=== PATIENT | female | born 1965 | race Caucasian/White ===

== ENCOUNTER 2017-08-25 05:24 | Day surgery (SDC) | payer MEDICARE, OTHER ==
[2017-08-22 15:49] VITALS: BP 108/73
[~2017-08-25] VITALS: Ht 161.3 cm; Wt 53.2 kg
[~2017-08-25 05:24] MED LIST: ATEN25TA PO; CLON0.5T20 PO; CYCL5TAB PO; FLUT9.9S NAS; LORA-439 PO; LORA0.5T PO; MEDR10TA PO; MIRT7.5T8 PO; NAPR220C2 PO; OXCA300T3 PO; POTA10TA17 PO; PROM25SU35 PR; ROSU20TA PO; SERT25TA3 PO; SUMA100T3 PO; SUMA5SPR2 NAS
[2017-08-25] MEDS ORDERED: LACTATED RINGERS 1,000 ML IV SCH (06:12)
[2017-08-25 06:13] LABS: HCG UR LOT HCG7030192
[2017-08-25] MEDS ORDERED: ROSU40TA PO (06:17)
[2017-08-25] MEDS ORDERED: OMEGA 3 PO (06:19)
[2017-08-25] MEDS ORDERED: OMEG1CAP2 PO (06:19)
[2017-08-25 06:21] VITALS: BP 108/73
[2017-08-25 06:25] LABS: HCG UR OBC PASS
[2017-08-25 06:45] LABS: HEMATOCRIT 29.4 % (34.6-47.8); HEMOGLOBIN 9.9 g/dL (11.7-16.4); WHITE BLOOD COUNT 6.9 x10^3/uL (3.4-10)
[2017-08-25] MEDS ORDERED: FLUORESCEIN SODIUM 500 MG/5 ML ONE (06:49)
[2017-08-25] MEDS ORDERED: LIDOCAINE/PF 1%, 30ML ONE (06:49)
[2017-08-25] MEDS ORDERED: EPINEPHRINE 1 MG/ML, 1ML ONE ×2 (06:50→07:11)
[2017-08-25 06:54] LABS: ASPARTATE AMINO TRANSFERASE 9 U/L (15-37); BLOOD UREA NITROGEN 20 mg/dL (7-18)
[2017-08-25] MEDS ORDERED: FENTANYL PF 100 MCG/2ML ONE ×3 (06:59→09:00)
[2017-08-25] MEDS ORDERED: MIDAZOLAM 1 MG/ML, 2ML ONE (06:59)
[2017-08-25] MEDS ORDERED: KETOROLAC 60 MG/2 ML ONE (07:10)
[2017-08-25] MEDS ORDERED: TRANEXAMIC ACID 100 MG/ML, 10ML ONE ×4 (07:10→07:11)
[2017-08-25] MEDS ORDERED: SODIUM CHLORIDE 0.9% 0 ML ONE (07:11)
[2017-08-25] MEDS ORDERED: SILVER NITRATE STICK TP ONE (07:24)
[2017-08-25] MEDS ORDERED: HYDROmorphone 1 MG/ML, 1ML IV PRN (08:30)
[2017-08-25] MEDS ORDERED: METOPROLOL 1 MG/ML, 5ML IV PRN (08:30)
[2017-08-25] MEDS ORDERED: MIDAZOLAM 1 MG/ML, 2ML IV PRN (08:30)
[2017-08-25] MEDS ORDERED: ONDANSETRON 2MG/ML, 2ML IVPush PRN (08:30)
[2017-08-25] MEDS ORDERED: EPHEDRINE 50 MG/ML, 1ML IVPush PRN (08:30)
[2017-08-25] MEDS ORDERED: hydrALAzine 20 MG/ML, 1ML IV PRN (08:30)
[2017-08-25] MEDS ORDERED: PROMETHAZINE 25 MG/ML, 1ML IV PRN (08:30)
[2017-08-25] MEDS ORDERED: ALBUTEROL SULFATE 2.5 MG/3 ML NPPB PRN (08:30)
[2017-08-25] MEDS ORDERED: LABETALOL 5MG/ML, 20ML IV PRN (08:30)
[2017-08-25] MEDS ORDERED: FENTANYL PF 100 MCG/2ML IV PRN (08:30)
[2017-08-25] MEDS ORDERED: ACETAMINOPHEN 325 MG TABLET PO PRN (08:30)
[2017-08-25] MEDS ORDERED: SUCCINYLCHOLINE 20 MG/ML, 10ML ONE (08:36)
[2017-08-25] MEDS ORDERED: GLYCOPYRROLATE 0.2MG/1ML, 5ML ONE (08:36)
[2017-08-25] MEDS ORDERED: ROCURONIUM 10 MG/ML,10ML ONE (08:36)
[2017-08-25] MEDS ORDERED: CEFAZOLIN 1,000 MG ONE (08:36)
[2017-08-25] MEDS ORDERED: PROPOFOL 10 MG/ML, 20ML ONE (08:36)
[2017-08-25] MEDS ORDERED: DEXAMETHASONE 4 MG/ML, 1ML ONE (08:36)
[2017-08-25] MEDS ORDERED: NEOSTIGMINE 1 MG/ML, 10ML ONE (08:36)
[2017-08-25] MEDS ORDERED: ONDANSETRON 2MG/ML, 2ML ONE (08:36)
[2017-08-25] MEDS ORDERED: ACETAMINOPHEN 650 MG/20.3 ML UDC ONE (08:59)
== END 2017-08-25 16:30 ==
LOC: OUT 05:24
PROVIDERS: ATTEND Obstetrics & Gynecology Gynecology
DX: N92.0 Excessive and frequent menstruation with regular cycle (principal); D64.9 Anemia, unspecified; F31.9 Bipolar disorder, unspecified; Z88.0 Allergy status to penicillin; Z88.8 Allergy status to other drugs, medicaments and biological substances; Z88.1 Allergy status to other antibiotic agents; Z91.040 Latex allergy status
CPT/HCPCS: 36415; 52000; 58262; 80053; 81001; 81025; 85014; 85025; 88307; J0171; J0330; J0690; J1100; J1885; J2250; J2405; J2704; J2710; J3010; J3490; J7120

== ENCOUNTER → 2020-05-12 | Outpatient (CLI) | payer MEDICARE, OTHER ==
[~2020-05-12] MED LIST changes: +B CO1TAB14 PO; +ERGO500017 PO; +HYDR5TAB13 PO; +LEVO75TA PO; +LIOT5TAB11 PO; +MAGN400T9 PO; +MAGN500T PO; +METO25TA35 PO; +OMEG1CAP2 PO; +OMEGA 3 PO; +PROM25TA10 PO; -ROSU20TA PO; +ROSU20TA2 PO; +ROSU40TA PO; +TYLENOL ARTHRITIS PO; +UBID100C41 PO; +VITA1TAB19 PO
== END | disposition home or self-care (01) ==
LOC: STAR 14:06
PROVIDERS: ATTEND Urology
DX: Z01.818 Encounter for other preprocedural examination (principal); Z11.59 Encounter for screening for other viral diseases; N20.0 Calculus of kidney
CPT/HCPCS: 36415; 87635; 93005

== ENCOUNTER 2020-05-17 12:15 | Day surgery (SDC) | payer MEDICARE, OTHER ==
[~2020-05-17] VITALS: Ht 160 cm; Wt 71.3 kg
[2020-05-17] MEDS ORDERED: LACTATED RINGERS 1,000 ML IV SCH (13:02)
[2020-05-17 13:03] VITALS: BP 131/75
[2020-05-17] MEDS ORDERED: LORA10TA75 PO (13:28)
[2020-05-17] MEDS ORDERED: CHLORHEXIDINE 15 ML UDC MM ONE (13:30)
[2020-05-17] MEDS ORDERED: HYDROCORTISONE 100 MG INJ. ONE (14:02)
[2020-05-17] MEDS ORDERED: MIDAZOLAM 1 MG/ML, 2ML ONE (14:03)
[2020-05-17] MEDS ORDERED: FENTANYL PF 250 MCG/5ML ONE (14:04)
[2020-05-17] MEDS ORDERED: SUCCINYLCHOLINE 20 MG/ML, 10ML ONE (14:05)
[2020-05-17] MEDS ORDERED: ONDANSETRON 2MG/ML, 2ML ONE (14:05)
[2020-05-17] MEDS ORDERED: ROCURONIUM 10 MG/ML,10ML ONE (14:05)
[2020-05-17] MEDS ORDERED: PROPOFOL 10 MG/ML, 100ML IV ONE (14:05)
[2020-05-17] MEDS ORDERED: hydrALAzine 20 MG/ML, 1ML IV PRN (14:30)
[2020-05-17] MEDS ORDERED: HYDROmorphone 1 MG/ML, 1ML INJ IVPush PRN (14:30)
[2020-05-17] MEDS ORDERED: DIPHENHYDRAMINE 50 MG/ML, 1ML IVPush PRN (14:30)
[2020-05-17] MEDS ORDERED: DIAZEPAM 5 MG/ML, 2ML IVPush PRN (14:30)
[2020-05-17] MEDS ORDERED: PROMETHAZINE 12.5 MG SUPP PR PRN (14:30)
[2020-05-17] MEDS ORDERED: EPHEDRINE 50 MG/ML, 1ML IVPush PRN (14:30)
[2020-05-17] MEDS ORDERED: OXYcodone 5 MG/5 ML ORAL.SOL UDC PO PRN (14:30)
[2020-05-17] MEDS ORDERED: ACETAMINOPHEN 325 MG TABLET PO PRN (14:30)
[2020-05-17] MEDS ORDERED: ALBUTEROL SULFATE 2.5 MG/3 ML NPPB PRN (14:30)
[2020-05-17] MEDS ORDERED: ONDANSETRON 2MG/ML, 2ML IVPush PRN (14:30)
[2020-05-17] MEDS ORDERED: MIDAZOLAM 1 MG/ML, 2ML IV PRN (14:30)
[2020-05-17] MEDS ORDERED: MEPERIDINE/PF 25MG/0.5ML IVPush PRN (14:30)
[2020-05-17] MEDS ORDERED: LABETALOL 5MG/ML, 20ML IV PRN (14:30)
[2020-05-17] MEDS ORDERED: FENTANYL PF 100 MCG/2ML IV PRN (14:30)
[2020-05-17] MEDS ORDERED: PROMETHAZINE 25 MG/ML, 1ML IVPush PRN (14:30)
[2020-05-17] MEDS ORDERED: PROMETHAZINE 25 MG/ML, 1ML ONE (15:21)
== END 2020-05-17 17:30 | disposition home or self-care (01) ==
LOC: OUT 12:15
PROVIDERS: ATTEND Urology
DX: N20.0 Calculus of kidney (principal); I10 Essential (primary) hypertension; F41.9 Anxiety disorder, unspecified; E27.1 Primary adrenocortical insufficiency; E78.5 Hyperlipidemia, unspecified; I73.00 Raynaud's syndrome without gangrene; Z79.890 Hormone replacement therapy; Z79.899 Other long term (current) drug therapy; Z87.891 Personal history of nicotine dependence; Z87.442 Personal history of urinary calculi; Z88.0 Allergy status to penicillin; Z88.5 Allergy status to narcotic agent; Z88.6 Allergy status to analgesic agent; Z88.8 Allergy status to other drugs, medicaments and biological substances; Z91.040 Latex allergy status; Z91.041 Radiographic dye allergy status; Z83.3 Family history of diabetes mellitus
CPT/HCPCS: 50590; J0330; J1720; J2250; J2405; J2550; J2704; J3010

== ENCOUNTER → 2020-12-07 | Outpatient (CLI) | payer MEDICARE, OTHER ==
[~2020-12-07] MED LIST changes: +ACET1TAB64 PO; +LEVO50TA5 PO; +LORA10TA75 PO; +SERT-331 PO; -SERT25TA3 PO
== END | disposition home or self-care (01) ==
LOC: STAR 15:20
PROVIDERS: ATTEND Urology
DX: Z20.822 Contact with and (suspected) exposure to COVID-19 (principal); N20.0 Calculus of kidney
CPT/HCPCS: U0003

== ENCOUNTER 2020-12-13 11:39 | Day surgery (SDC) | payer MEDICARE, OTHER ==
[~2020-12-13] VITALS: Ht 161.3 cm; Wt 74.0 kg
[2020-12-13] MEDS ORDERED: MIDAZOLAM 1 MG/ML, 2ML ONE (12:49)
[2020-12-13] MEDS ORDERED: FENTANYL PF 250 MCG/5ML ONE (12:50)
[2020-12-13] MEDS ORDERED: ONDA4TAB7 PO (12:57)
[2020-12-13 12:58] VITALS: BP 125/81
[2020-12-13] MEDS ORDERED: LACTATED RINGERS 1,000 ML IV SCH (13:00)
[2020-12-13] MEDS ORDERED: CHLORHEXIDINE 15 ML UDC PO ONE (13:00)
[2020-12-13] MEDS ORDERED: HYDROCORTISONE 100 MG INJ. ONE (13:00)
[2020-12-13] MEDS ORDERED: PROPOFOL 10 MG/ML, 20ML ONE (13:58)
[2020-12-13] MEDS ORDERED: CEFAZOLIN 1,000 MG ONE (13:58)
[2020-12-13] MEDS ORDERED: LABETALOL 5MG/ML, 20ML IV PRN (14:30)
[2020-12-13] MEDS ORDERED: ACETAMINOPHEN 325 MG TABLET PO PRN (14:30)
[2020-12-13] MEDS ORDERED: LORazepam 2 MG/ML, 1ML IVPush PRN (14:30)
[2020-12-13] MEDS ORDERED: FENTANYL PF 100 MCG/2ML IV PRN (14:30)
[2020-12-13] MEDS ORDERED: hydrALAzine 20 MG/ML, 1ML IV PRN (14:30)
[2020-12-13] MEDS ORDERED: HYDROmorphone 1 MG/ML, 1ML INJ IVPush PRN (14:30)
[2020-12-13] MEDS ORDERED: PROMETHAZINE 25 MG/ML, 1ML IVPush PRN (14:30)
[2020-12-13] MEDS ORDERED: OXYcodone 5 MG/5 ML ORAL.SOL UDC PO PRN (14:30)
[2020-12-13] MEDS ORDERED: MEPERIDINE/PF 25MG/0.5ML IVPush PRN (14:30)
[2020-12-13] MEDS ORDERED: ONDANSETRON 2MG/ML, 2ML IVPush PRN (14:30)
[2020-12-13] MEDS ORDERED: ONDANSETRON 2MG/ML, 2ML ONE (15:02)
== END 2020-12-13 17:05 | disposition home or self-care (01) ==
LOC: OUT 11:39
PROVIDERS: ATTEND Urology
DX: N20.0 Calculus of kidney (principal); I10 Essential (primary) hypertension; E27.1 Primary adrenocortical insufficiency; E78.5 Hyperlipidemia, unspecified; Z79.890 Hormone replacement therapy; Z79.899 Other long term (current) drug therapy; Z87.442 Personal history of urinary calculi; Z87.891 Personal history of nicotine dependence; Z88.0 Allergy status to penicillin; Z88.8 Allergy status to other drugs, medicaments and biological substances; Z91.040 Latex allergy status; Z84.1 Family history of disorders of kidney and ureter; Z82.49 Family history of ischemic heart disease and other diseases of the circulatory system; Z83.3 Family history of diabetes mellitus
CPT/HCPCS: 50590; J0690; J1720; J2250; J2405; J2704; J3010; J7120